=== PATIENT | male | born 2005 | race Caucasian/White ===

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

== ENCOUNTER 2024-03-15 12:58 | Emergency (ER) | payer BC ==
[2024-03-15 13:35] LABS: CORONAVIRUS COVID-19 NAA NEGATIVE (NEGATIVE); INFLUENZA A NAA NEGATIVE (NEGATIVE); INFLUENZA B NAA NEGATIVE (NEGATIVE)
[2024-03-15] MEDS ORDERED: Take Home: Amoxicillin 875 MG Tab, 2 Tab Pack PO ONE (13:44)
[2024-03-15] MEDS: Take Home: Amoxicillin 875 MG Tab, 2 Tab Pack PO ONE (13:52)
== END 2024-03-15 13:57 | disposition home or self-care (01) ==
LOC: VM.ED 12:58
DX: J02.9 Acute pharyngitis, unspecified (principal)
CPT/HCPCS: 0240U; 87651; 99283; A9270

== ENCOUNTER 2024-03-22 13:50 | Emergency (ER) | payer BC ==
[2024-03-22] MEDS: Take Home: Cephalexin 500 MG Cap, 6 Cap Pack PO ONE ×2 (15:00→15:46)
[2024-03-22] MEDS: Take Home: Cephalexin 250 MG Cap, 4 Cap Pack PO ONE (15:29)
[2024-03-22] MEDS: Mupirocin Oint 22 GM Tube TOP ONE (15:29)
== END 2024-03-22 15:30 | disposition home or self-care (01) ==
LOC: VM.ED 13:50
DX: L01.00 Impetigo, unspecified (principal); H60.92 Unspecified otitis externa, left ear
CPT/HCPCS: 99282; 99283; A9270-GY